=== PATIENT | male | born 1990 | race Caucasian/White ===

== ENCOUNTER 2023-03-02 16:20 | Emergency (ER) | payer MEDICAID ==
[~2023-03-02] VITALS: Ht 188 cm; Wt 97.3 kg
[2023-03-02 16:49] VITALS: TEMP 98.4
[2023-03-02] MEDS ORDERED: TRAZ-252 PO (16:52)
[2023-03-02] MEDS ORDERED: ZIPR20CA38 PO (16:52)
[2023-03-02] MEDS ORDERED: ACETAMINOPHEN 500 MG TABLET PO ONE (18:15)
[2023-03-02 19:14] LABS: ALCOHOL, URINE DRUG SCREEN NEGATIVE (NEGATIVE); AMPHET/METH SCREEN,URINE NEGATIVE (NEGATIVE); BARBITURATE SCREEN, URINE NEGATIVE (NEGATIVE); BENZODIAZEPINES SCREEN,URINE NEGATIVE (NEGATIVE); CANNABINOID SCREEN,URINE NEGATIVE (NEGATIVE); COCAINE SCREEN,URINE NEGATIVE (NEGATIVE); METHADONE SCREEN, URINE NEGATIVE (NEGATIVE); OPIATE SCREEN,URINE NEGATIVE (NEGATIVE); PHENCYCLIDINE SCREEN,URINE NEGATIVE (NEGATIVE)
[2023-03-02 20:01] VITALS: BP 123/77; PULSE 84; RESP 18
== END 2023-03-02 20:12 | disposition home or self-care (01) ==
LOC: EMS 16:25
DX: F25.9 Schizoaffective disorder, unspecified (principal); F31.9 Bipolar disorder, unspecified; F17.210 Nicotine dependence, cigarettes, uncomplicated; Z91.040 Latex allergy status
CPT/HCPCS: 80307; 99283